=== PATIENT | male | born 1960 | race Caucasian/White ===

== ENCOUNTER 2018-02-28 12:26 | Emergency (ER) | payer OTHER, MEDICARE ==
[2018-02-28 12:33] VITALS: BP 145/65; PULSE 86; RESP 16; TEMP 98.3; O2SAT 95
[2018-02-28 13:19] LABS: AUTOMATED NEUTROPHIL # 8.2 TH/MM3 (1.8-7.7); BASOPHIL # 0.1 TH/MM3 (0-0.2); BASOPHIL % 0.4 % (0.0-2.0); EOSINOPHIL # 0.1 TH/MM3 (0-0.4); EOSINOPHIL % 0.5 % (0.0-4.0); HEMATOCRIT 43.4 % (39.0-51.0); HEMOGLOBIN 15.2 GM/DL (13.0-17.0); LYMPHOCYTE # 2.5 TH/MM3 (1.0-4.8); MEAN CELL VOLUME 87.1 FL (80.0-100.0); MEAN CORPUSCULAR HEMOGLOBIN 30.6 PG (27.0-34.0); MEAN CORPUSCULAR HGB CONC 35.1 % (32.0-36.0); MONO % 8.1 % (0.0-8.0); PLATELET COUNT 225 TH/MM3 (150-450); RED BLOOD COUNT 4.98 MIL/MM3 (4.50-5.90); WHITE BLOOD COUNT 11.7 TH/MM3 (4.0-11.0)
--- NOTE | 2018-02-28 13:29 | RADRPT ---
EXAM DATE/TIME: 02/28/2018 13:14 [place] COMPARISON: No previous studies available for comparison. INDICATIONS : Short of breath. MEDICAL HISTORY : Chronic obstructive pulmonary disease. SURGICAL HISTORY : None. ENCOUNTER: Initial ACUITY: 2 days PAIN SCORE: 0/10 LOCATION: Bilateral chest FINDINGS: PA and lateral views of the chest demonstrate a normal-sized cardiac silhouette. There is no effusion , consolidation, or pneumothorax. The bones and soft tissues demonstrate no acute abnormality. There are degenerative changes of the thoracic spine. CONCLUSION: No acute cardiopulmonary abnormality is identified. Porfirio Gibbons MD on February 28, 2018 at 13:26 Board Certified Radiologist. This report was verified electronically.
[2018-02-28 13:36] LABS: ALBUMIN 4.1 GM/DL (3.4-5.0); ALT (GPT) 45 U/L (12-78); AST (GOT) 23 U/L (15-37); BICARBONATE 27.8 MEQ/L (21.0-32.0); BLOOD UREA NITROGEN 9 MG/DL (7-18); CHLORIDE 101 MEQ/L (98-107); CREATININE 0.85 MG/DL (0.60-1.30); GLOMERULAR FILTRATION RATE 92 ML/MIN (>89); GLUCOSE,RANDOM 240 MG/DL (74-106); SODIUM (NA) 137 MEQ/L (136-145)
[2018-02-28 13:39] LABS: ALKALINE PHOSPHATASE 58 U/L (45-117); TOTAL BILIRUBIN ADULT 0.4 MG/DL (0.2-1.0); TOTAL PROTEIN 7.9 GM/DL (6.4-8.2)
[2018-02-28] MEDS ORDERED: AZITHROMYCIN INJ 500 MG in SODIUM CHLOR 0.9% 250 ML INJ 250 ML IV ONE (13:45)
[2018-02-28] MEDS ORDERED: methylPREDNISolone SOD SUCC 125 MG/2 ML VIAL IV PUSH ONE (13:45)
[2018-02-28] MEDS: RESP: ALBUTEROL 2.5 MG/IPRATROPIUM 0.5 MG NEB (SCH) INH ×2 (13:51→13:52)
--- NOTE | 2018-02-28 14:01 | PD ---
HPI Chief Complaint: Respiratory Symptoms Time Seen by Provider: 13:27 Travel History International Travel<30 days: No Contact w/Intl Traveler<30days: No History of Present Illness HPI 57-year-old male that presents to the ED for evaluation of shortness of breath and chest pressure. Per patient he has a chronic history of COPD and follows up with a payment manager in [place]. He states that he has been fairly short of breath for the past week but worse for the past couple of days. Denies any urinary or bowel movement issues. Per patient he has chest pressure which is normal for him with his COPD exacerbation. Per patient he got concerned because his O2 sats have been coming down during the night. He has been using his inhalers with minimal relief. He does state that he feels still short of breath. He has been on steroids before. Per patient he had a fever last night but this went away today. Denies any history of heart failure CHF. Per patient she is here visiting as he has a condo and he is here with some friends. He has no allergies to medication. Has not taken any steroids recently but does take inhalers with steroids on them. [facility] Social History Tobacco Use: No Allergies-Medications (Allergen,Severity, Reaction): Coded Allergies: No Known Allergies (Unverified , 02/28/18) Reported Meds & Prescriptions Reported Meds & Active Scripts Active Azithromycin 250 Mg Tab 250 Mg PO DIRECTED Take 2 tabs (500 mg) on day 1 then 1 tab daily x 4 days. Prednisone 20 Mg Tab 20 Mg PO BID 7 Days Review of Systems Except as stated in HPI: all other systems reviewed are Neg Physical Exam Narrative GENERAL: SKIN: Warm and dry. HEAD: Atraumatic. Normocephalic. EYES: Pupils equal and round. No scleral icterus. No injection or drainage. ENT: No nasal bleeding or discharge. Mucous membranes pink and moist. Tongue is midline. No uvula deviation NECK: Trachea midline. No JVD. CARDIOVASCULAR: Regular rate and rhythm. No murmurs, S3, S4. RESPIRATORY: No accessory muscle use. Clear to auscultation. Breath sounds equal bilaterally. GASTROINTESTINAL: Abdomen soft, non-tender, nondistended. Hepatic and splenic margins not palpable. MUSCULOSKELETAL: Extremities without clubbing, cyanosis, or edema. No obvious deformities. Full range of motion of the upper and lower extremities bilaterally. 2+ pulses bilaterally. NEUROLOGICAL: Awake and alert. No obvious cranial nerve deficits. Motor grossly within normal limits. Five out of 5 muscle strength in the arms and legs. Normal speech. PSYCHIATRIC: Appropriate mood and affect; insight and judgment normal. Data Data Last Documented VS Vital Signs Date Time Temp Pulse Resp B/P (MAP) Pulse Ox O2 Delivery O2 Flow Rate FiO2 02/28/18 15:22 94 Nasal Cannula 2.00 02/28/18 15:22 108 20 02/28/18 12:33 98.3 Orders Orders Complete Blood Count With Diff (02/28/18 12:38) Comprehensive Metabolic Panel (02/28/18 12:38) B-Type Natriuretic Peptide (02/28/18 12:38) Electrocardiogram (02/28/18 12:38) Chest, Pa & Lat (02/28/18 12:38) Methylprednisolone So Succ Inj (Solumedr (02/28/18 13:45) Albuterol-Ipratropium Neb (Duoneb Neb) (02/28/18 13:45) Azithromycin Inj (Zithromax Inj) (02/28/18 13:45) Troponin I (02/28/18 13:33) Ckmb (Isoenzyme) Profile (02/28/18 13:33) Electrocardiogram (02/28/18 ) Influenzae A/B Antigen (02/28/18 13:37) CKMB (02/28/18 13:50) CKMB% (02/28/18 13:50) Ed Discharge Order (02/28/18 15:36) Labs Laboratory Tests Test 02/28/18 12:42 02/28/18 13:50 White Blood Count 11.7 TH/MM3 Red Blood Count 4.98 MIL/MM3 Hemoglobin 15.2 GM/DL Hematocrit 43.4 % Mean Corpuscular Volume 87.1 FL Mean Corpuscular Hemoglobin 30.6 PG Mean Corpuscular Hemoglobin Concent 35.1 % Red Cell Distribution Width 13.0 % Platelet Count 225 TH/MM3 Mean Platelet Volume 9.0 FL Neutrophils (%) (Auto) 70.0 % Lymphocytes (%) (Auto) 21.0 % Monocytes (%) (Auto) 8.1 % Eosinophils (%) (Auto) 0.5 % Basophils (%) (Auto) 0.4 % Neutrophils # (Auto) 8.2 TH/MM3 Lymphocytes # (Auto) 2.5 TH/MM3 Monocytes # (Auto) 1.0 TH/MM3 Eosinophils # (Auto) 0.1 TH/MM3 Basophils # (Auto) 0.1 TH/MM3 CBC Comment DIFF FINAL Differential Comment Blood Urea Nitrogen 9 MG/DL Creatinine 0.85 MG/DL Random Glucose 240 MG/DL Total Protein 7.9 GM/DL Albumin 4.1 GM/DL Calcium Level 9.0 MG/DL Alkaline Phosphatase 58 U/L Aspartate Amino Transf (AST/SGOT) 23 U/L Alanine Aminotransferase (ALT/SGPT) 45 U/L Total Bilirubin 0.4 MG/DL Sodium Level 137 MEQ/L Potassium Level 4.2 MEQ/L Chloride Level 101 MEQ/L Carbon Dioxide Level 27.8 MEQ/L Anion Gap 8 MEQ/L Estimat Glomerular Filtration Rate 92 ML/MIN B-Type Natriuretic Peptide 5 PG/ML Total Creatine Kinase 135 U/L Creatine Kinase MB 2.4 NG/ML Troponin I LESS THAN 0.02 NG/ML MDM Medical Decision Making Medical Screen Exam Complete: Yes Emergency Medical Condition: Yes Medical Record Reviewed: Yes Interpretation(s) CBC & BMP Diagram 02/28/18 12:42 Total Protein 7.9, Albumin 4.1, Calcium Level 9.0, Alkaline Phosphatase 58, Aspartate Amino Transf (AST/SGOT) 23, Alanine Aminotransferase (ALT/SGPT) 45, Total Bilirubin 0.4 BNP WNL Last Impressions Chest X-Ray 02/28/18 1238 Signed Impressions: Service Date/Time: Wednesday, February 28, 2018 13:14 - CONCLUSION: No acute cardiopulmonary abnormality is identified. Porfirio Gibbons MD Differential Diagnosis COPD exacerbation versus CHF exacerbation versus normal exam versus bronchitis Narrative Course 57-year-old male who presents to the ED for evaluation of COPD exacerbation. Patient was properly examined and was found to have signs and symptoms consistent appears to be mild COPD exacerbation. Patient's exam and vitals are reassuring. Patient has slight wheezing. Patient has no fever at this time and his oxygenation is in the 95's. Patient has been seen walking into the bathroom with no obvious issues. At this time labs and imaging were ordered. Patient was given breathing treatments as well as Solu-Medrol IV. Azithromycin given IV as well. Patient will be reassessed. Labs and imaging were essentially unremarkable at this time. Patient was reassured. Patient had improvement with breathing treatment and Solu-Medrol. He was given azithromycin here as well. He will be given prescriptions for prednisone as well as azithromycin to cover for COPD exacerbation. Patient agrees with this plan. Told to use inhalers as prescribed by his doctor. See ED if worsening symptoms. Follow-up with PCP. Diagnosis Primary Impression: COPD with exacerbation Patient Instructions: General Instructions Additional Instructions: Take meds as prescribed. Follow-up with PCP. See ED for worsening symptoms. Med/Other Pt SpecificInfo: Prescription(s) given Scripts Azithromycin (Azithromycin) 250 Mg Tab 250 MG PO DIRECTED for Infection, #6 TAB 0 Refills Take 2 tabs (500 mg) on day 1 then 1 tab daily x 4 days. Prov: Nino Jo MD 02/28/18 Prednisone (Prednisone) 20 Mg Tab 20 MG PO BID for 7 Days, #14 TAB 0 Refills Prov: Nino Jo MD 02/28/18 Disposition: 01 DISCHARGE HOME Condition: Stable Josiah Scruggs Feb 28, 2018 14:01
[2018-02-28 14:41] LABS: TROPONIN I LESS THAN 0.02 NG/ML (0.02-0.05)
[2018-02-28] MEDS ORDERED: PRED20 PO (15:14)
[2018-02-28] MEDS ORDERED: AZIT250T3 PO (15:14)
[2018-02-28 15:22] VITALS: BP 135/75; PULSE 108; RESP 20; O2SAT 91; O2SAT 94
--- NOTE | 2018-03-01 21:40 | EKG ---
Date Performed: 02/28/2018 Time Performed: 12:49:07 PTAGE: 57 years EKG: Sinus rhythm NORMAL ECG NO PREVIOUS TRACING DOCTOR: Juan C Lopez Interpretating Date/Time 03/01/2018 21:37:44
== END 2018-02-28 15:51 | disposition home or self-care (01) ==
LOC: NEPE 12:26
DX: J44.1 Chronic obstructive pulmonary disease with (acute) exacerbation (principal)
CPT/HCPCS: 71046; 80053; 82550; 82552; 83880; 84484; 85025; 87804; 93005; 94640; 94664; 96374; 96375; 99285; J0456; J2930; J7050